=== PATIENT | female | born 1955 | race Caucasian/White ===

== ENCOUNTER 2020-05-08 10:14 | Outpatient (CLI) | payer MEDICARE ==
--- NOTE | 2020-05-08 14:12 | RAD ---
Exam: Chest one view 3 views left RIBS HISTORY: Fall. Left rib pain FINDINGS: Normal cardiac silhouette. Pulmonary vessels and hilum are normal. Costophrenic angles are clear. No masses or consolidation. No pneumothorax. No osseous abnormalities Left rib series: No fracture, cortical irregularity or periosteal reaction. IMPRESSION: 1. No evidence of a left rib fracture 2. No acute cardiopulmonary process.
== END 2020-05-08 10:15 | disposition home or self-care (01) ==
LOC: NAV RAD 10:14
PROVIDERS: ATTEND Nurse Practitioner Adult Health
DX: R07.81 Pleurodynia (principal)